=== PATIENT | male | born 1955 | race Caucasian/White ===

== ENCOUNTER 2023-02-06 08:19 | Inpatient (IN) | payer MEDICARE, MEDICAID ==
[~2023-02-06] VITALS: Ht 182.9 cm; Wt 77.0 kg
[2023-02-06 08:56] LABS: HEMATOCRIT 43.4 % (42.0-52.0); HEMOGLOBIN 14.2 g/dL (13.5-18.0); MEAN CELL VOLUME 82 fl (78-100); MEAN CORPUSCULAR HEMOGLOBIN 27 pg (27-31); MEAN CORPUSCULAR HGB CONC 33 g/dL (33-37); MEAN PLATELET VOLUME 10.3 fl (7.4-10.4); PLATELET COUNT 179 K/mm3 (130-400); RED BLOOD COUNT 5.28 M/mm3 (4.20-5.60); RED CELL DISTRIBUTION WIDTH 14.9 % (11.5-14.5)
[2023-02-06 09:03] LABS: ALBUMIN 4.2 g/dL (3.4-4.8); SODIUM 135 mmol/L (136-145)
[2023-02-06 09:04] LABS: CALCIUM 9.5 mg/dL (8.3-10.5)
[2023-02-06 09:05] LABS: GLUCOSE 135 mg/dL (75-110); TOTAL PROTEIN 8.2 g/dL (6.2-8.1)
[2023-02-06 09:06] LABS: CARBON DIOXIDE 21 mmol/L (23-31); WHITE BLOOD COUNT 24.1 K/mm3 (4.8-10.8)
[2023-02-06 09:07] LABS: TOTAL BILIRUBIN 0.8 mg/dL (0.2-1.2)
[2023-02-06 09:09] LABS: PROTHROMBIN TIME 10.6 SECONDS (9.0-12.0)
[2023-02-06 09:10] LABS: AST-SGOT 17 U/L (5-34)
[2023-02-06 09:12] LABS: ALT/SGPT 23 U/L (0-55); MAGNESIUM 1.45 mg/dL (1.60-2.60)
[2023-02-06 09:19] LABS: TROPONIN-I < 0.030 ng/mL (<0.030)
[2023-02-06 09:23] LABS: LYMPHOCYTE 10 % (20-51); MONOCYTE 8 % (3-10); NEUTROPHILS 82 % (42-75)
[2023-02-06 10:53] LABS: PH-URINE 5.5 (5.0 - 8.0); URINE APPEARANCE SLIGHTLY CLOUDY (CLEAR); URINE COLOR ORANGE (YELLOW); URINE GLUCOSE NEGATIVE (NEGATIVE); URINE PROTEIN(semi-quant) 2+ (NEGATIVE)
[2023-02-06 10:54] LABS: URINE BILIRUBIN 2+ (NEGATIVE); URINE BLOOD NEGATIVE (NEGATIVE); URINE KETONE 1+ (NEGATIVE); URINE LEUKOCYTE ESTERASE NEGATIVE (NEGATIVE); URINE NITRATE NEGATIVE (NEGATIVE)
[2023-02-06 12:35] VITALS: BP 95/68
[2023-02-06 16:06] LABS: BASO # 0.01 K/mm3 (0.02-0.10); HEMATOCRIT 38.6 % (42.0-52.0); HEMOGLOBIN 12.7 g/dL (13.5-18.0); LYMPH# 1.68 K/mm3 (1.50-4.00); MEAN CELL VOLUME 83 fl (78-100); MEAN CORPUSCULAR HEMOGLOBIN 27 pg (27-31); MEAN CORPUSCULAR HGB CONC 33 g/dL (33-37); MEAN PLATELET VOLUME 10.9 fl (7.4-10.4); NEU # 18.06 K/mm3 (1.40-6.50); PLATELET COUNT 137 K/mm3 (130-400); RED BLOOD COUNT 4.64 M/mm3 (4.20-5.60); RED CELL DISTRIBUTION WIDTH 15.1 % (11.5-14.5)
[2023-02-06 16:13] LABS: WHITE BLOOD COUNT 20.9 K/mm3 (4.8-10.8)
[2023-02-06 16:15] LABS: ALBUMIN 3.6 g/dL (3.4-4.8)
[2023-02-06 16:16] LABS: CALCIUM 8.4 mg/dL (8.3-10.5)
[2023-02-06 16:19] LABS: TOTAL BILIRUBIN 0.7 mg/dL (0.2-1.2)
[2023-02-06 17:21] VITALS: BP 122/73
--- NOTE | 2023-02-06 19:00 | NUR ---
Report received from Ivelisse MELO.
[2023-02-06] MEDS ORDERED: ANORO ELLIPTA1 POW IH (19:22)
[2023-02-06] MEDS ORDERED: ASPIRIN E.C. 8181 MG PO (19:22)
[2023-02-06] MEDS ORDERED: PROAIR HFA0.09 MG/AC IH (19:23)
[2023-02-06] MEDS ORDERED: NEURONTIN300 M1 PO (19:23)
[2023-02-06] MEDS ORDERED: CLOPIDOGREL PO (19:23)
[2023-02-06] MEDS ORDERED: LISINOPRIL20 MG PO (19:24)
[2023-02-06] MEDS ORDERED: ROSUVASTATIN CA40 MG PO (19:24)
[2023-02-06] MEDS ORDERED: PANTOPRAZOLE SO20 M1 PO (19:25)
--- NOTE | 2023-02-06 19:30 | NUR ---
Patients breathing treatment complete. Patient alert and oriented x 4. Reports some low back pain and offered tylenol and given. Denies shortness of breath or couphing up phlemn. States "I didn't even know I had pneumonia. Encouraged to drink more water at least 2 pitchers a day around home as well and less caffenated drinks. "I drink alot of pop". Requests sleep aid and Willa ISAAC notified and order received. Patient states he'll take benadryl around 21-2200. IVF's infuse 200mls/hr.
--- NOTE | 2023-02-06 21:15 | NUR ---
Patients daughter Ruiz called and update given. Per patient ok to give her medical information. Reported per patient he states he's doing well. Reported CT result findings of pneumonia and WBC and UA results. Reviewed antibiotics patient is receiving. States she'll be in in am.
--- NOTE | 2023-02-06 22:15 | NUR ---
Patient resting on left side with eyes closed. Respirations with ease.
[2023-02-06 22:19] VITALS: BP 97/61; BP_SYST 143
--- NOTE | 2023-02-07 01:00 | NUR ---
Patients bed alarm alarming and patient up without assist to the bathroom. Voids clear yellow urine 700mls and LANDSCAPE ARCHITECTURE TEACHER assists patient back to bed. Gait steady without device. Denies needs. Per Palmira ISAAC continue IVF's at 200mls and will reevaluate in am.
[2023-02-07 01:36] VITALS: BP 98/62
--- NOTE | 2023-02-07 05:00 | NUR ---
Patient awakened for vitals reports he slept well. Uses urinal at bedside and returns to resting back in bed.
[2023-02-07 05:37] LABS: HEMATOCRIT 31.6 % (42.0-52.0); HEMOGLOBIN 10.1 g/dL (13.5-18.0); MEAN PLATELET VOLUME 10.7 fl (7.4-10.4); RED BLOOD COUNT 3.72 M/mm3 (4.20-5.60); RED CELL DISTRIBUTION WIDTH 15.3 % (11.5-14.5); WHITE BLOOD COUNT 10.1 K/mm3 (4.8-10.8)
[2023-02-07 05:49] LABS: CALCIUM 8.1 mg/dL (8.3-10.5)
[2023-02-07 05:51] VITALS: BP 116/70
[2023-02-07 05:56] LABS: MAGNESIUM 1.65 mg/dL (1.60-2.60)
--- NOTE | 2023-02-07 07:00 | NUR ---
RESUMED CARE FROM KAMERON FERRELL.
[2023-02-07 09:39] VITALS: BP 91/52
--- NOTE | 2023-02-07 11:15 | NUR ---
Assisted Steve with Medical DPOA and Living Will. His daughter Frankie at bedside. Given Copies. Scanned into chart.
[2023-02-07 14:06] VITALS: BP 104/63
[2023-02-07 17:38] VITALS: BP 125/73
--- NOTE | 2023-02-07 18:54 | NUR ---
REPORT TO KAMERON MARIE.
--- NOTE | 2023-02-07 20:25 | NUR ---
PT FOUND IN BED AWAKE, A/O X4 ABLE TO MAKE NEEDS KNOWN, PT ENDORSES LOWER BACK PAIN, 7/10 DUE TO COUGHING, HOME MEDS RESTARTED BY PROVIDERR. PT ENDORSES USING IS, PT TOLERATING RA. BREATHING TX DONE AND TOLERATED BY PT. PT DENIES FURTHER NEEDS. PT LEFT IN BED AT LOWEST POSITION, ALARMED WITH CALL LIGHT IN REACH.
[2023-02-07 21:57] VITALS: BP 114/61
[2023-02-08 02:11] VITALS: BP 111/68
[2023-02-08 05:47] VITALS: BP 136/74
--- NOTE | 2023-02-08 07:11 | NUR ---
RECEIVED REPORT FROM KAMERON MARIE
--- NOTE | 2023-02-08 09:56 | NUR ---
PATIENT IS A&O X 4. DENIES PAIN OR DISCOMFORT AT THIS TIME. TAKES MEDS AND BREATHING TREATMENT WITHOUT ISSUE. CONTINUES ON TELE READING NSR. NO DIFFICULTY BREATHING. DAUGHTER PHONED FOR UPDATE AND REQUESTED ANY SCRIPTS BE SENT TO [facility] [address]. IV ATB INFUSED PER ORDER. CALL LIGHT IN REACH
[2023-02-08 10:04] VITALS: BP 106/62
[2023-02-08 10:50] LABS: BASO # 0.02 K/mm3 (0.02-0.10); EOS # 0.22 K/mm3 (0.04-0.40); EOS % 3.7 % (0.0-4.0); HEMATOCRIT 32.4 % (42.0-52.0); HEMOGLOBIN 10.2 g/dL (13.5-18.0); LYMPH# 1.06 K/mm3 (1.50-4.00); MEAN CELL VOLUME 85 fl (78-100); MEAN CORPUSCULAR HEMOGLOBIN 27 pg (27-31); MEAN CORPUSCULAR HGB CONC 32 g/dL (33-37); MEAN PLATELET VOLUME 10.3 fl (7.4-10.4); MONO # 0.43 K/mm3 (0.20-0.80); NEU # 4.17 K/mm3 (1.40-6.50); PLATELET COUNT 108 K/mm3 (130-400); RED BLOOD COUNT 3.82 M/mm3 (4.20-5.60); RED CELL DISTRIBUTION WIDTH 15.4 % (11.5-14.5); WHITE BLOOD COUNT 5.9 K/mm3 (4.8-10.8)
[2023-02-08 10:58] LABS: CALCIUM 8.5 mg/dL (8.3-10.5)
[2023-02-08] MEDS ORDERED: ZITHROMAX 250M250 MG PO (11:42)
[2023-02-08] MEDS ORDERED: CEFDINIR300 MG PO (11:42)
[2023-02-08] MEDS ORDERED: IPRATROPIUM BROM3 M1 IH (12:01)
[2023-02-08] MEDS ORDERED: NEB INH (12:01)
--- NOTE | 2023-02-08 12:41 | NUR ---
PROVIDER HAS BEEN IN TO SPEAK WITH PATIENT AND DAUGHTER. EXPLAINED TO PATIENT THAT TO GET HIS PREVIOUS MEDICATIONS FILLED HE WOULD NEED TO ESTABLISH WITH A PCP. REQUEST FOR MEDICAL RECORDS FAXED TO [facility] IN [facility], PER PATIENT REQUEST. NEW PATIENT REQUEST FOR FILLED OUT WITH DESIRED MEDS AND TAKEN TO [facility] FOR PATIENT. 0900 INHALER WAS NOT AVAILABLE THIS MORNING, BUT PRESCRIPTION SENT TO [facility] ALONG WITH OTHER MEDS PERTAINING TO VISIT. PATIENT DISMISSED VIA WHEELCHAIR ACCOMPANIED BY DAUGHTER.
== END 2023-02-08 12:46 | disposition home or self-care (01) | DRG 872 ==
LOC: ED 08:19 → MED/SURG 12:04
PROVIDERS: Family Medicine; Nurse Practitioner; ADMIT Nurse Practitioner Family
DX: A41.9 Sepsis, unspecified organism (principal); N17.9 Acute kidney failure, unspecified; I12.9 Hypertensive chronic kidney disease with stage 1 through stage 4 chronic kidney disease, or unspecified chronic kidney disease; J44.9 Chronic obstructive pulmonary disease, unspecified; N18.9 Chronic kidney disease, unspecified; Z87.891 Personal history of nicotine dependence; Z88.0 Allergy status to penicillin
CPT/HCPCS: C9113; J0456; J0696; J1650; J7030; J7050

== ENCOUNTER → 2023-03-06 | Outpatient (CLI) | payer MEDICARE, MEDICAID ==
[~2023-03-06] MED LIST: ANORO ELLIPTA1 POW IH; ASPIRIN E.C. 8181 MG PO; CEFDINIR300 MG PO; CLOPIDOGREL PO; IPRATROPIUM BROM3 M1 IH; LISINOPRIL20 MG PO; NEB INH; NEURONTIN300 M1 PO; PANTOPRAZOLE SO20 M1 PO; PROAIR HFA0.09 MG/AC IH; ROSUVASTATIN CA40 MG PO; ZITHROMAX 250M250 MG PO
[2023-03-06 16:35] LABS: ALBUMIN 4.2 g/dL (3.4-4.8)
[2023-03-06 16:36] LABS: CALCIUM 11.4 mg/dL (8.3-10.5)
[2023-03-06 16:37] LABS: TOTAL PROTEIN 8.2 g/dL (6.2-8.1)
[2023-03-06 16:39] LABS: TOTAL BILIRUBIN 0.33 mg/dL (0.2-1.2)
== END ==
LOC: LAB 16:13
PROVIDERS: Family Medicine
DX: I67.2 Cerebral atherosclerosis (principal); R79.89 Other specified abnormal findings of blood chemistry

== ENCOUNTER 2023-03-12 17:38 | Emergency (ER) | payer MEDICARE, MEDICAID ==
[~2023-03-12] VITALS: Ht 180.3 cm; Wt 70.9 kg
[2023-03-12] MEDS ORDERED: Albuterol/Ipratropium 3 MG-0.5 MG/3 ML Neb Soln IH ONE (18:45)
[2023-03-12] MEDS ORDERED: methylPREDNISolone Sod Succ 125 MG/2 ML VIAL IV ONE (18:45)
[2023-03-12 18:55] LABS: BASO # 0.02 K/mm3 (0.02-0.10); EOS # 0.23 K/mm3 (0.04-0.40); EOS % 3.9 % (0.0-4.0); HEMOGLOBIN 13.3 g/dL (13.5-18.0); LYMPH# 1.73 K/mm3 (1.50-4.00); MEAN CELL VOLUME 84 fl (78-100); MEAN CORPUSCULAR HEMOGLOBIN 27 pg (27-31); MEAN CORPUSCULAR HGB CONC 32 g/dL (33-37); MEAN PLATELET VOLUME 10.3 fl (7.4-10.4); MONO # 0.48 K/mm3 (0.20-0.80); NEU # 3.48 K/mm3 (1.40-6.50); PLATELET COUNT 135 K/mm3 (130-400); RED CELL DISTRIBUTION WIDTH 14.4 % (11.5-14.5); WHITE BLOOD COUNT 5.9 K/mm3 (4.8-10.8)
[2023-03-12 19:06] LABS: ALBUMIN 4.2 g/dL (3.4-4.8)
[2023-03-12 19:08] LABS: CALCIUM 9.6 mg/dL (8.3-10.5)
[2023-03-12 19:09] LABS: TOTAL PROTEIN 7.9 g/dL (6.2-8.1)
[2023-03-12 19:11] LABS: TOTAL BILIRUBIN 0.4 mg/dL (0.2-1.2)
[2023-03-12] MEDS ORDERED: amLODIPine 5 MG TAB PO ONE (20:15)
[2023-03-12] MEDS ORDERED: Azithromycin 250 MG TAB PO ONE (20:45)
[2023-03-12] MEDS ORDERED: ZITHROMAX500 M2 PO (20:53)
[2023-03-12] MEDS ORDERED: PREDNISONE20 M1 PO (20:53)
[2023-03-12 21:12] VITALS: BP 153/101
== END 2023-03-12 21:14 | disposition home or self-care (01) ==
LOC: ED 17:38
PROVIDERS: Family Medicine
DX: J44.1 Chronic obstructive pulmonary disease with (acute) exacerbation (principal); I10 Essential (primary) hypertension; Z87.891 Personal history of nicotine dependence; Z88.0 Allergy status to penicillin
CPT/HCPCS: J2930

== ENCOUNTER → 2023-04-03 | Outpatient (CLI) | payer MEDICARE, MEDICAID ==
[~2023-04-03] MED LIST changes: +PREDNISONE20 M1 PO; +ZITHROMAX500 M2 PO
[2023-04-03 15:39] LABS: CALCIUM 10.2 mg/dL (8.3-10.5)
== END ==
LOC: LAB 15:09
PROVIDERS: Family Medicine
DX: I10 Essential (primary) hypertension (principal)

== ENCOUNTER → 2023-05-31 | Outpatient (CLI) | payer MEDICARE, MEDICAID | LOC: RAD 09:54 | DX: Z12.5 Encounter for screening for malignant neoplasm of prostate (principal); M19.042 Primary osteoarthritis, left hand; M19.041 Primary osteoarthritis, right hand; I67.2 Cerebral atherosclerosis ==

== ENCOUNTER → 2023-06-02 | Outpatient (CLI) | payer MEDICARE, MEDICAID | LOC: RAD 10:31 | DX: Z13.6 Encounter for screening for cardiovascular disorders (principal) ==

== ENCOUNTER → 2023-09-11 | Day surgery (SDC) | payer MEDICARE ==
[~2023-09-11] MED LIST changes: +Lidocaine PF 2% (20 MG/ML) 2 ML VIAL ONE
== END | disposition home or self-care (01) ==
LOC: MSO 08:33
DX: Z12.11 Encounter for screening for malignant neoplasm of colon (principal); D12.2 Benign neoplasm of ascending colon; D12.5 Benign neoplasm of sigmoid colon
CPT/HCPCS: 00811; J2704; J7120

== ENCOUNTER → 2023-10-11 | Outpatient (CLI) | payer MEDICARE, MEDICAID ==
[~2023-10-11] MED LIST changes: -Lidocaine PF 2% (20 MG/ML) 2 ML VIAL ONE
== END ==
LOC: RAD 12:26
DX: M47.816 Spondylosis without myelopathy or radiculopathy, lumbar region (principal); M41.86 Other forms of scoliosis, lumbar region; I70.0 Atherosclerosis of aorta

== ENCOUNTER → 2023-11-03 | Outpatient (CLI) | payer MEDICARE, MEDICAID | LOC: RAD 07:12 | DX: M51.36 Other intervertebral disc degeneration, lumbar region (principal); M48.061 Spinal stenosis, lumbar region without neurogenic claudication ==

== ENCOUNTER → 2024-01-16 | Day surgery (SDC) | payer MEDICARE, MEDICAID | LOC: WKSPAIN 03:43 | DX: M47.817 Spondylosis without myelopathy or radiculopathy, lumbosacral region (principal); G89.29 Other chronic pain; Z79.82 Long term (current) use of aspirin; Z87.891 Personal history of nicotine dependence; Z86.73 Personal history of transient ischemic attack (TIA), and cerebral infarction without residual deficits ==

== ENCOUNTER → 2024-05-07 | Day surgery (SDC) | payer MEDICARE, MEDICAID | LOC: WKSPAIN 02-27 13:13 | DX: M47.896 Other spondylosis, lumbar region (principal); Z79.82 Long term (current) use of aspirin; Z87.891 Personal history of nicotine dependence; M48.061 Spinal stenosis, lumbar region without neurogenic claudication; M41.9 Scoliosis, unspecified; G89.29 Other chronic pain ==